=== PATIENT | female | born 1990 | race Hispanic/Latino ===

== ENCOUNTER 2021-05-14 09:24 | Emergency (ER) | payer OTHER ==
[~2021-05-14] VITALS: Ht 170.2 cm; Wt 66.0 kg
[2021-05-14] MEDS ORDERED: NS 1,000 ML IV ONE (12:40)
[2021-05-14] MEDS ORDERED: KETOROLAC 30 MG/ML 1ML VIAL IV ONE (12:40)
[2021-05-14 13:22] LABS: BASO % 0.2 % (0.0-1.0); EOS # 0.1 10^3/uL (0.0-0.5); EOS % 1.2 % (0.0-3.0); HEMOGLOBIN 13.3 g/dl (12.0-15.5); LYMPH # 3.3 10^3/uL (1.5-5.0); LYMPH % 34.6 % (24.0-44.0); MEAN CORPUSCULAR HEMOGLOBIN 26.5 pg (27.0-33.0); MEAN CORPUSCULAR HGB CONC 31.7 g/dl (32.0-36.5); MEAN CORPUSCULAR VOLUME 83.8 fl (80.0-96.0); MONO # 0.7 10^3/uL (0.0-0.8); MONO % 7.5 % (2.0-8.0); NEUTROPHILS # 5.3 10^3/uL (1.5-8.5); NEUTROPHILS % 56.2 % (36.0-66.0); PLATELET COUNT, AUTOMATED 289 10^3/uL (150-450); RED BLOOD COUNT 5.01 10^6/uL (4.00-5.40); WHITE BLOOD COUNT 9.5 10^3/uL (4.0-10.0)
[2021-05-14 13:43] LABS: ERYTHROCYTE SEDIMENTATION RATE 5 mm/hr (0-20)
--- NOTE | 2021-05-14 14:15 | REP ---
INDICATION: RLQ/right pelvic pain. COMPARISON: None. TECHNIQUE: Transabdominal and transvaginal scanning were performed. FINDINGS: Uterine dimensions are normal at 7.6 x 3.7 x 4.1 cm. Endometrial echo is 0.3 cm thick and centrally placed. No free fluid is seen in the cul-de-sac. Visualized bladder mcgregor are smooth. Uterus is retroverted. The right ovary has dimensions of 3.0 x 1.8 x 2.0 cm. It's Doppler flow is normal with a resistive index of 0.37. There is a 1.4 cm follicle cyst in the right ovary. The left ovary dimensions are normal as well at 1.8 x 1.4 x 1.9 cm. It's Doppler flow was normal with resistive index of 0.54. IMPRESSION: Normal pelvic sonography. <Electronically signed by Clinton Daley > 05/14/21 [id number]
[2021-05-14] MEDS ORDERED: ISOVUE-370 76% 100ML VIAL As Ordered ONE (14:52)
--- NOTE | 2021-05-14 15:15 | REP ---
INDICATION: rlq abd pain, US neg, pain persists, lightheaded. COMPARISON: None. TECHNIQUE: Standard helical technique after the intravenous administration of 100 cc Isovue 370 FINDINGS: The lung bases are clear. The liver, gallbladder, spleen, pancreas, adrenal glands, and kidneys are within normal limits. Limited evaluation of the bowel loops shows a predominantly nondilated normal appearing appendix, however, the very tip of the appendix is deep in the right hemipelvis and not visualized as it abuts other bowel loops and reproductive organs. There is a small amount of free fluid the pelvis. The bowel loops and the mesenteries are otherwise unremarkable. The abdominal aorta and para-aortic regions are within normal limits. There is no evidence of free air. The osseous structures are within normal limits. IMPRESSION: The imaged portion of the appendix which is the predominant portion is unremarkable in appearance, however, the very tip is not visualized as described above and there is a small amount of free pelvic fluid. The pelvic fluid could be physiologic, however, I cannot completely rule out the possibility of distal appendiceal tip appendicitis at this time. Consider follow-up with bowel preparatory contrast administration and repeat CT scan if clinically relevant. <Electronically signed by Fermin Hughes > 05/14/21 [id number]
[2021-05-14 16:13] VITALS: BP 108/61
== END 2021-05-14 16:19 | disposition home or self-care (01) ==
LOC: M ED 09:24
DX: R10.31 Right lower quadrant pain (principal); Z79.3 Long term (current) use of hormonal contraceptives
CPT/HCPCS: 74177; 76830; 76856; 80047; 84702; 85025; 85652; 86140; 93976; 96361; 96374; 99284; J1885; Q9967

== ENCOUNTER 2021-12-29 20:33 | Emergency (ER) | payer OTHER ==
[~2021-12-29] VITALS: Ht 170.2 cm; Wt 70.5 kg
[2021-12-29 20:33] VITALS: BP 127/82
== END 2021-12-29 23:00 | disposition left against medical advice (07) ==
LOC: M ED 20:33
DX: Z53.21 Procedure and treatment not carried out due to patient leaving prior to being seen by health care provider (principal)

== ENCOUNTER → 2022-10-21 | Outpatient (REF) | payer OTHER ==
[2022-10-21 12:29] LABS: POTASSIUM SERUM 3.4 MMOL/L (3.5-5.1)
== END ==
LOC: M LAB REF 12:07
PROVIDERS: ATTEND Internal Medicine Nephrology
DX: I10 Essential (primary) hypertension (principal)

== ENCOUNTER → 2022-12-20 | Outpatient (REF) | payer OTHER ==
[2022-12-20 18:48] LABS: C REACTIVE PROTEIN QUANTITATIV 1.5 MG/DL (<1.0)
[2022-12-20 18:50] LABS: RHEUMATOID FACTOR QUANT 5.5 IU/ML (<14)
== END ==
LOC: M LAB REF 17:31
PROVIDERS: ATTEND Internal Medicine Nephrology
DX: M32.10 Systemic lupus erythematosus, organ or system involvement unspecified (principal)

== ENCOUNTER → 2023-05-12 | Outpatient (REF) | payer OTHER | LOC: M SFHCRHEU 14:41 | PROVIDERS: ATTEND Internal Medicine Rheumatology | DX: M32.14 Glomerular disease in systemic lupus erythematosus (principal); Z79.899 Other long term (current) drug therapy; I73.00 Raynaud's syndrome without gangrene; M79.675 Pain in left toe(s) ==

== ENCOUNTER → 2023-05-16 | Outpatient (REF) | payer OTHER ==
[2023-05-16 17:28] LABS: PERCENT SATURATION 16.3 % (13.2-45.0)
[2023-05-16 17:31] LABS: FERRITIN 18.9 NG/ML (7.3-270.7)
[2023-05-16 17:47] LABS: TOTAL PROTEIN,RANDOM URINE 67.2 MG/DL (0.0-14.0)
[2023-05-16 17:51] LABS: CREATININE,RANDOM URINE 143.3 MG/DL
== END ==
LOC: M LAB REF 17:04
PROVIDERS: ATTEND Internal Medicine Nephrology
DX: D50.9 Iron deficiency anemia, unspecified (principal); R80.9 Proteinuria, unspecified

== ENCOUNTER → 2023-10-09 | Outpatient (CLI) | payer OTHER ==
[2023-10-09 16:22] LABS: BASO % 0.4 % (0.0-1.0); EOS # 0.2 10^3/uL (0.0-0.5); EOS % 2.5 % (0.0-3.0); HEMATOCRIT 37.3 % (36.0-47.0); HEMOGLOBIN 11.7 g/dl (12.0-15.5); LYMPH # 2.5 10^3/uL (1.5-5.0); LYMPH % 34.9 % (24.0-44.0); MEAN CORPUSCULAR HEMOGLOBIN 26.9 pg (27.0-33.0); MEAN CORPUSCULAR HGB CONC 31.4 g/dl (32.0-36.5); MEAN CORPUSCULAR VOLUME 85.7 fl (80.0-96.0); MONO # 0.6 10^3/uL (0.0-0.8); MONO % 8.8 % (2.0-8.0); NEUTROPHILS # 3.8 10^3/uL (1.5-8.5); NEUTROPHILS % 53.3 % (36.0-66.0); PLATELET COUNT, AUTOMATED 270 10^3/uL (150-450); RED BLOOD COUNT 4.35 10^6/uL (4.00-5.40); WHITE BLOOD COUNT 7.2 10^3/uL (4.0-10.0)
[2023-10-09 16:48] LABS: ERYTHROCYTE SEDIMENTATION RATE 19 mm/hr (0-20)
[2023-10-09 16:52] LABS: C REACTIVE PROTEIN QUANTITATIV < 0.40 MG/DL (<1.0); LDH LACTATE DEHYDROGENASE 123 U/L (120-246)
[2023-10-09 16:53] LABS: CPK CREATINE PHOSPHOKINASE 104 U/L (34-145)
[2023-10-09 16:54] LABS: ALBUMIN 3.3 G/DL (3.2-5.2); ALKALINE PHOSPHATASE 66 U/L (46-116); ALT/SGPT 13 U/L (7.0-40); AST/SGOT 11 U/L (<34); BILIRUBIN,TOTAL 0.8 MG/DL (0.3-1.2); BLOOD UREA NITROGEN 18 MG/DL (9-23); CALCIUM LEVEL 8.8 MG/DL (8.5-10.1); CARBON DIOXIDE LEVEL 27 MMOL/L (20-31); CHLORIDE LEVEL 108 MMOL/L (98-107); CREATININE FOR GFR 0.79 MG/DL (0.55-1.30); GLOMERULAR FILTRATION RATE > 60.0 (>60); GLUCOSE, FASTING 79 MG/DL (60-100); POTASSIUM SERUM 3.6 MMOL/L (3.5-5.1); SODIUM LEVEL 139 MMOL/L (136-145); TOTAL PROTEIN 6.7 G/DL (5.7-8.2)
[2023-10-09 17:14] LABS: APPEARANCE, URINE CLEAR (CLEAR); BACTERIA, URINE AUTO NEGATIVE (NEGATIVE); BILIRUBIN, URINE AUTO NEGATIVE (NEGATIVE); BLOOD, URINE BLOOD 1+ (NEGATIVE); COLOR, URINE YELLOW (YELLOW); COMPLEMENT C3 92.5 MG/DL (84.0-160.0); COMPLEMENT C4 13.8 MG/DL (12-36); GLUCOSE, URINE (UA) AUTO NEGATIVE (NEGATIVE); KETONE, URINE AUTO NEGATIVE (NEGATIVE); LEUKOCYTE ESTERASE, URINE AUTO NEGATIVE (NEGATIVE); NITRITE, URINE AUTO NEGATIVE (NEGATIVE); PROTEIN, URINE AUTO 2+ mg/dL (NEGATIVE); RBC, URINE AUTO 1 /HPF (0-3); SPECIFIC GRAVITY URINE AUTO 1.021 (1.002-1.035); SQUAMOUS EPITHELIAL CELL UR AU 5 /HPF (0-6); UROBILINOGEN, URINE AUTO 0.2 mg/dL (0.0-2.0); WBC, URINE AUTO 2 /HPF (0-3)
== END ==
LOC: M WUC 14:40
PROVIDERS: ATTEND Internal Medicine Rheumatology
DX: M32.14 Glomerular disease in systemic lupus erythematosus (principal); Z79.899 Other long term (current) drug therapy; I73.00 Raynaud's syndrome without gangrene; M79.675 Pain in left toe(s)

== ENCOUNTER → 2023-11-03 | Outpatient (CLI) | payer OTHER | LOC: M WUC 13:40 | PROVIDERS: ATTEND Internal Medicine Rheumatology | DX: M32.14 Glomerular disease in systemic lupus erythematosus (principal); I73.00 Raynaud's syndrome without gangrene; M79.675 Pain in left toe(s); M46.1 Sacroiliitis, not elsewhere classified ==

== ENCOUNTER → 2024-02-13 | Outpatient (REF) | payer OTHER | LOC: M SFHCPLAZ 15:26 | PROVIDERS: ATTEND Student in an Organized Health Care Education/Training Program | DX: Z76.89 Persons encountering health services in other specified circumstances (principal); Z53.9 Procedure and treatment not carried out, unspecified reason ==

== ENCOUNTER → 2024-02-13 | Outpatient (CLI) | payer OTHER ==
[2024-02-13 17:57] LABS: BASO % 0.4 % (0.0-1.0); EOS # 0.2 10^3/uL (0.0-0.5); EOS % 1.9 % (0.0-3.0); HEMATOCRIT 38.4 % (36.0-47.0); HEMOGLOBIN 12.3 g/dl (12.0-15.5); LYMPH # 2.6 10^3/uL (1.5-5.0); MEAN CORPUSCULAR HEMOGLOBIN 27.5 pg (27.0-33.0); MEAN CORPUSCULAR VOLUME 85.7 fl (80.0-96.0); MONO # 0.6 10^3/uL (0.0-0.8); MONO % 7.3 % (2.0-8.0); NEUTROPHILS # 4.4 10^3/uL (1.5-8.5); NEUTROPHILS % 56.3 % (36.0-66.0); PLATELET COUNT, AUTOMATED 277 10^3/uL (150-450); RED BLOOD COUNT 4.48 10^6/uL (4.00-5.40); WHITE BLOOD COUNT 7.8 10^3/uL (4.0-10.0)
[2024-02-13 18:13] LABS: HEMOGLOBIN A1c 4.9 % (4.0-6.0)
[2024-02-13 18:19] LABS: ALBUMIN 3.6 G/DL (3.2-5.2); ALKALINE PHOSPHATASE 81 U/L (46-116); ALT/SGPT 20 U/L (7.0-40); AST/SGOT 25 U/L (<34); BLOOD UREA NITROGEN 15 MG/DL (9-23); CALCIUM LEVEL 9.4 MG/DL (8.5-10.1); CARBON DIOXIDE LEVEL 26 MMOL/L (20-31); CHLORIDE LEVEL 107 MMOL/L (98-107); CHOLESTEROL LEVEL 212 MG/DL (<200); CHOLESTEROL RISK RATIO 4.24 (<5); CREATININE FOR GFR 0.95 MG/DL (0.55-1.30); GLOMERULAR FILTRATION RATE > 60.0 (>60); GLUCOSE, FASTING 79 MG/DL (60-100); LDL CHOLESTEROL 141.4 MG/DL (<100); SODIUM LEVEL 139 MMOL/L (136-145); TRIGLYCERIDES LEVEL 103 MG/DL (<150)
[2024-02-13 18:47] LABS: HIV 1&2 SCREEN NEGATIVE (NEGATIVE)
[2024-02-13 18:55] LABS: HEPATITIS C VIRUS ABY INDEX < 0.02 INDEX (<0.8)
== END ==
LOC: M PLALAB 15:35
PROVIDERS: ATTEND Student in an Organized Health Care Education/Training Program
DX: Z76.89 Persons encountering health services in other specified circumstances (principal)

== ENCOUNTER → 2024-04-20 | Outpatient (REF) | payer BC | LOC: M WUC 19:07 | PROVIDERS: ATTEND Registered Nurse | DX: J02.9 Acute pharyngitis, unspecified (principal) ==

== ENCOUNTER → 2024-04-22 | Outpatient (REF) | payer BC, OTHER ==
[2024-04-22 18:50] LABS: CREATININE,RANDOM URINE 277.9 MG/DL; TOTAL PROTEIN,RANDOM URINE 479.2 MG/DL (0.0-14.0)
== END ==
LOC: M LAB REF 17:05
PROVIDERS: ATTEND Internal Medicine Nephrology
DX: M32.10 Systemic lupus erythematosus, organ or system involvement unspecified (principal)

== ENCOUNTER → 2024-10-21 | Outpatient (REF) | payer BC, OTHER ==
[2024-10-22 18:34] LABS: TOTAL PROTEIN,RANDOM URINE 350.5 MG/DL (0.0-14.0)
== END ==
LOC: M LAB REF 17:19
PROVIDERS: ATTEND Internal Medicine Nephrology
DX: M32.14 Glomerular disease in systemic lupus erythematosus (principal)

== ENCOUNTER → 2024-11-04 | Outpatient (CLI) | payer BC, OTHER ==
[2024-11-04 18:52] LABS: Trichomonas vaginalis (AMP) NOT DETECTED (NEGATIVE)
[2024-11-04 19:10] LABS: HEPATITIS B SURFACE ANTIGEN NEGATIVE (NEGATIVE)
[2024-11-04 19:17] LABS: GC DNA AMPLIFICATION NEGATIVE (NEGATIVE)
[2024-11-04 19:22] LABS: HIV 1&2 SCREEN NEGATIVE (NEGATIVE)
[2024-11-04 19:29] LABS: HEPATITIS C VIRUS ABY INDEX 0.03 INDEX (<0.8)
[2024-11-04 19:30] LABS: HEPATITIS B CORE ANTIBODY IGM NEGATIVE (NEGATIVE)
[2024-11-06 14:47] LABS: HPV APTIMA Detected (Not Detected)
== END ==
LOC: M PLALAB 16:18
PROVIDERS: ATTEND Nurse Practitioner Family
DX: Z12.4 Encounter for screening for malignant neoplasm of cervix (principal); Z11.3 Encounter for screening for infections with a predominantly sexual mode of transmission; N73.9 Female pelvic inflammatory disease, unspecified; R30.0 Dysuria; R87.612 Low grade squamous intraepithelial lesion on cytologic smear of cervix (LGSIL)
CPT/HCPCS: 86705; 86780; 86803; 87070; 87086; 87340; 87389; 87624; 87661; 87810; 87850; G0123

== ENCOUNTER → 2024-12-12 | Outpatient (REF) | payer BC, OTHER | LOC: M SFHCWAGY 13:09 | PROVIDERS: ATTEND Nurse Practitioner Family | DX: N84.3 Polyp of vulva (principal) ==

== ENCOUNTER → 2025-03-31 | Outpatient (REF) | payer OTHER ==
[2025-03-31 15:37] LABS: ALT/SGPT 10 U/L (7.0-40); AST/SGOT 15 U/L (<34); BASO # 0.0 10^3/uL (0.0-0.2); BASO % 0.3 % (0.0-1.0); C REACTIVE PROTEIN QUANTITATIV < 0.50 MG/DL (<1.0); CALCIUM LEVEL 9.6 MG/DL (8.5-10.1); CARBON DIOXIDE LEVEL 27 MMOL/L (20-31); CHLORIDE LEVEL 105 MMOL/L (98-107); CREATININE FOR GFR 1.09 MG/DL (0.55-1.30); EOS # 0.1 10^3/uL (0.0-0.5); EOS % 2.3 % (0.0-3.0); GLOMERULAR FILTRATION RATE 68.4 (>60); LYMPH # 2.2 10^3/uL (1.5-5.0); LYMPH % 35.7 % (24.0-44.0); MONO # 0.5 10^3/uL (0.0-0.8); MONO % 8.3 % (2.0-8.0); NEUTROPHILS # 3.3 10^3/uL (1.5-8.5); NEUTROPHILS % 53.1 % (36.0-66.0); PLATELET COUNT, AUTOMATED 254 10^3/uL (150-450); POTASSIUM SERUM 3.6 MMOL/L (3.5-5.1); SODIUM LEVEL 142 MMOL/L (136-145)
[2025-03-31 15:38] LABS: APPEARANCE, URINE CLEAR (CLEAR); BACTERIA, URINE AUTO NEGATIVE (NEGATIVE); BILIRUBIN, URINE AUTO NEGATIVE (NEGATIVE); BLOOD, URINE BLOOD 1+ (NEGATIVE); GLUCOSE, URINE (UA) AUTO NEGATIVE (NEGATIVE); KETONE, URINE AUTO NEGATIVE (NEGATIVE); LEUKOCYTE ESTERASE, URINE AUTO NEGATIVE (NEGATIVE); MUCUS, URINE SMALL (NEGATIVE); NITRITE, URINE AUTO NEGATIVE (NEGATIVE); PROTEIN, URINE AUTO 3+ mg/dL (NEGATIVE); RBC, URINE AUTO 1 /HPF (0-3); SPECIFIC GRAVITY URINE AUTO 1.013 (1.002-1.035); SQUAMOUS EPITHELIAL CELL UR AU 3 /HPF (0-6); UROBILINOGEN, URINE AUTO 0.2 mg/dL (0.0-2.0); WBC, URINE AUTO 2 /HPF (0-3)
[2025-03-31 15:43] LABS: ERYTHROCYTE SEDIMENTATION RATE 32 mm/hr (0-20)
[2025-03-31 16:12] LABS: TOTAL PROTEIN,RANDOM URINE 203.6 MG/DL (0.0-14.0)
[2025-03-31 16:17] LABS: COMPLEMENT C4 18.9 MG/DL (12-36)
[2025-04-03 10:52] LABS: ANTI DS-DNA AB Positive (Negative)
[2025-04-03 11:27] LABS: ANTI DS-DNA TITER 1:80 titer (<1:10)
[2025-04-03 15:02] LABS: COMPLEMENT TOTAL (CH50) 55 U/mL (31-60)
== END ==
LOC: M SFHCRHEU 12:00
PROVIDERS: ATTEND Internal Medicine Rheumatology
DX: M32.14 Glomerular disease in systemic lupus erythematosus (principal); Z79.899 Other long term (current) drug therapy; I73.00 Raynaud's syndrome without gangrene; M25.50 Pain in unspecified joint

== ENCOUNTER → 2025-04-23 | Outpatient (CLI) | payer OTHER | LOC: M SOG 06:56 | PROVIDERS: ATTEND Neuromusculoskeletal Medicine, Sports Medicine | DX: M25.561 Pain in right knee (principal); M25.562 Pain in left knee; Z53.9 Procedure and treatment not carried out, unspecified reason ==